=== PATIENT | female | born 1960 ===

== ENCOUNTER → 2017-09-06 | Outpatient (CLI) | payer OTHER ==
--- NOTE | 2017-09-08 14:49 | RAD ---
EXAM DESCRIPTION: Lumbar Spine 5 Views (accession [id number]), Lumbar Spine,Flex/Ext (accession [id number]) CLINICAL HISTORY: RADICULOPATHY, LUMBAR REGION COMPARISON: Lumbar TECHNIQUE: AP, lateral radiographs of the entire lumbar spine. Spot-lateral radiograph of the lumbar sacral junction. FINDINGS: Lumbar type vertebra: 5. Transitional vertebrae: None. Disk spaces: Endplate spurs at some levels. Minimal narrowing L5-S1. Oblique: No spondylolysis. Facet joints: Right L5-S1 narrowing and sclerosis. Right L4-5 narrowing and sclerosis Compression deformities: None. Bone Density: Normal. Alignment: Extension limited below L3-4 disc space. Flexion is limited below L2. Abdomen: Unremarkable. IMPRESSION: Minimal desiccation most likely with disc space loss L5-S1. No spondylolisthesis. No scoliosis or compression type vertebral body fractures. Facet arthrosis on the right at L4-5 and L5-S1. Limited flexion and extension. No evidence of instability. Electronically signed by: Alke Mesa MD 09/08/2017 2:48 PM CDT
--- NOTE | 2017-09-08 14:49 | RAD ---
EXAM DESCRIPTION: Lumbar Spine 5 Views (accession [id number]), Lumbar Spine,Flex/Ext (accession [id number]) CLINICAL HISTORY: RADICULOPATHY, LUMBAR REGION COMPARISON: Lumbar TECHNIQUE: AP, lateral radiographs of the entire lumbar spine. Spot-lateral radiograph of the lumbar sacral junction. FINDINGS: Lumbar type vertebra: 5. Transitional vertebrae: None. Disk spaces: Endplate spurs at some levels. Minimal narrowing L5-S1. Oblique: No spondylolysis. Facet joints: Right L5-S1 narrowing and sclerosis. Right L4-5 narrowing and sclerosis Compression deformities: None. Bone Density: Normal. Alignment: Extension limited below L3-4 disc space. Flexion is limited below L2. Abdomen: Unremarkable. IMPRESSION: Minimal desiccation most likely with disc space loss L5-S1. No spondylolisthesis. No scoliosis or compression type vertebral body fractures. Facet arthrosis on the right at L4-5 and L5-S1. Limited flexion and extension. No evidence of instability. Electronically signed by: Alek Mesa MD 09/08/2017 2:48 PM CDT
== END ==
LOC: RAD 16:08
PROVIDERS: ATTEND Nurse Practitioner Family
DX: M54.16 Radiculopathy, lumbar region (principal)

== ENCOUNTER → 2018-02-04 | Outpatient (CLI) | payer OTHER ==
--- NOTE | 2018-02-05 08:55 | US ---
EXAM DESCRIPTION: Renal: Ultrasound. CLINICAL HISTORY: 57 years Female CYSTS COMPARISON: Bilateral renal arterial Doppler evaluation on the same visit. TECHNIQUE: Transcutaneous scanning: Two-dimensional and Doppler modes. FINDINGS: Right kidney measures 9.9 x 5.4 x 5.3 cm; mid-renal cortical thickness 7.7 mm. . Normal echogenicity. No hydronephrosis No echogenic stones. 1.7 x 1.5 x 1.3 cm circumscribed anechoic cyst. Smooth contour of the kidney with no perinephric fluid. Normal vascularity. Proximal ureter not visualized. Left kidney measures 11.3 x 6.7 x 6.2 cm; mid-renal cortical thickness 8.5 mm.. Normal echogenicity. Mild hydronephrosis. No echogenic stones. Smooth contour of the kidney with no perinephric fluid. Normal vascularity.. Proximal ureter not visualized. Urinary bladder not visualized. Abdominal aorta diameter not measured. IMPRESSION: 1. Normal echogenicity of the right kidney with thin cortex. Overall size slightly decreased. No hydronephrosis or perinephric fluid. 2. Normal echogenicity of the left kidney with thin cortex. Normal size. Mild hydronephrosis. No perinephric fluid. Proximal ureter not seen. Electronically signed by: Alek Mesa MD 02/05/2018 8:53 AM [facility]
== END ==
LOC: LAB.O 11:42
PROVIDERS: ATTEND Nurse Practitioner Family
DX: Q61.02 Congenital multiple renal cysts (principal); N30.01 Acute cystitis with hematuria